=== PATIENT | female | born 2000 | race African-American/Black ===

== ENCOUNTER 2021-02-26 18:14 | Emergency (ER) | payer OTHER ==
[~2021-02-26 18:14] MED LIST: BACLOFEN 10MG T10 MG PO; FLEXERIL10 MG PO; NAPROXEN500 MG PO; VOLTAREN **OUT75 MG PO
[2021-02-26] MEDS ORDERED: BACLOFEN 10MG T10 MG PO (19:53)
== END 2021-02-26 21:15 | disposition home or self-care (01) ==
LOC: FER 18:14
DX: S46.912A Strain of unspecified muscle, fascia and tendon at shoulder and upper arm level, left arm, initial encounter (principal); M54.50 Low back pain, unspecified; V49.40XA Driver injured in collision with unspecified motor vehicles in traffic accident, initial encounter; Y92.410 Unspecified street and highway as the place of occurrence of the external cause
CPT/HCPCS: 72131; 73030; 96372; J1100; J1885